=== PATIENT | female | born 1995 | race Asian ===

== ENCOUNTER 2017-11-06 17:07 | Emergency (ER) | payer OTHER ==
[~2017-11-06] VITALS: Ht 160 cm; Wt 90.7 kg
[2017-11-06 18:44] LABS: PLATELET COUNT 280 K/uL (152-353)
[2017-11-06 18:55] LABS: POTASSIUM 3.8 mmol/L (3.6-5.2)
[2017-11-06 20:24] VITALS: BP 110/76; TEMP 98.5
== END 2017-11-06 20:25 | disposition home or self-care (01) ==
LOC: ED 17:07
DX: S50.01XA Contusion of right elbow, initial encounter (principal); S80.01XA Contusion of right knee, initial encounter; S10.93XA Contusion of unspecified part of neck, initial encounter; V47.0XXA Car driver injured in collision with fixed or stationary object in nontraffic accident, initial encounter
CPT/HCPCS: 36415; 80053; 81000; 85027; 99283

== ENCOUNTER 2020-06-28 03:01 | Emergency (ER) | payer OTHER ==
[~2020-06-28] VITALS: Ht 162.6 cm; Wt 90.7 kg
[2020-06-28 03:32] LABS: PLATELET COUNT 260 K/uL (152-353)
[2020-06-28 03:39] LABS: POTASSIUM 3.7 mmol/L (3.6-5.2)
[2020-06-28 06:15] VITALS: BP 114/57; TEMP 98.7
== END 2020-06-28 06:17 | disposition home or self-care (01) ==
LOC: ED 03:01
PROVIDERS: Family Medicine
DX: K29.60 Other gastritis without bleeding (principal); K52.89 Other specified noninfective gastroenteritis and colitis
CPT/HCPCS: 36415; 80053; 81000; 81025; 82150; 83690; 84702; 85027; 96360; 96374; 96375; 96376; 99284; J1885; J2405; J3490

== ENCOUNTER 2020-07-15 21:36 | Emergency (ER) | payer OTHER ==
[~2020-07-15] VITALS: Ht 162.6 cm; Wt 87.1 kg
[2020-07-15 22:17] LABS: PLATELET COUNT 219 K/uL (152-353)
[2020-07-15 22:27] LABS: POTASSIUM 3.8 mmol/L (3.6-5.2)
[2020-07-16 00:45] VITALS: BP 135/74; TEMP 98.3
== END 2020-07-16 00:45 | disposition home or self-care (01) ==
LOC: ED 21:36
PROVIDERS: Family Medicine
DX: K29.60 Other gastritis without bleeding (principal); K52.89 Other specified noninfective gastroenteritis and colitis
CPT/HCPCS: 36415; 80053; 81000; 81025; 82150; 84484; 85027; 93005; 96374; 96375; 99284; J1885; J2405; J3490